=== PATIENT | female | born 1990 | race Caucasian/White ===

== ENCOUNTER 2017-04-23 14:52 | Emergency (ER) | payer BC ==
[2017-04-23 15:13] VITALS: RESP 16
[2017-04-23 16:25] LABS: RBC URINE < 1 /hpf (0-3); TRANSITIONAL EPITHIAL < 1 /hpf (0-3); URINE BACTERIA RARE (<OCC); URINE BILIRUBIN NEGATIVE (NEGATIVE); URINE BLOOD NEGATIVE (NEGATIVE); URINE COLOR Yellow (YELLOW); URINE GLUCOSE (UA) NORMAL (Normal); URINE KETONE TRACE mg/dL (NEGATIVE); URINE LEUKOCYTE ESTERASE NEG Leu/uL (Negative); URINE PROTEIN NEGATIVE (NEGATIVE); URINE UROBILINOGEN NORMAL mg/dL (0.2-1.0); WBC URINE 1 /hpf (0-5)
[2017-04-23 16:31] LABS: BASO # 0.1 K/uL (0.0-0.2); BASO % 0.6 % (0.0-2.0); EOS # 0.2 K/uL (0.0-0.7); EOS % 1.7 % (0.0-4.0); HEMATOCRIT 33.7 % (34.0-47.0); LYMPH # 2.4 K/uL (1.0-4.3); LYMPH % 23.4 % (20.0-40.0); MEAN CELL VOLUME 82.8 fL (81.0-99.0); MEAN CORPUSCULAR HEMOGLOBIN 27.8 pg (27.0-31.0); MEAN CORPUSCULAR HGB CONC 33.5 g/dL (33.0-37.0); MEAN PLATELET VOLUME 8.3 fL (7.2-11.7); MONO # 0.7 K/uL (0.0-0.8); MONO % 6.5 % (0.0-10.0); RED CELL DISTRIBUTION WIDTH 14.5 % (11.5-14.5); WHITE BLOOD COUNT 10.3 K/uL (4.8-10.8)
[2017-04-23] MEDS ORDERED: Sodium Chloride 0.9% 1,000 ML IV ONE (16:36)
[2017-04-23 16:39] LABS: CHLORIDE 100 mmol/L (98-107)
[2017-04-23 16:40] LABS: POTASSIUM 4.1 mmol/L (3.6-5.2); SODIUM 134 mmol/L (132-148)
[2017-04-23 16:42] LABS: CARBON DIOXIDE 21 mmol/L (22-30); GFR AFRICAN-AMERICAN > 60
[2017-04-23 16:43] LABS: ALB/GLOB RATIO 1.1 (1.0-2.1); ALKALINE PHOSPHATASE 68 U/L (38-126); ALT/SGPT 28 U/L (9-52); AST/SGOT 16 U/L (14-36); BILIRUBIN,TOTAL 0.7 mg/dL (0.2-1.3); BLOOD UREA NITROGEN 10 mg/dL (7-17); CALCIUM 9.2 mg/dl (8.6-10.4); GLUCOSE,RANDOM 79 mg/dL (65-105); TOTAL PROTEIN 7.4 g/dL (6.3-8.3)
[2017-04-23] MEDS ORDERED: Morphine 4 MG/ML VIAL ONE (17:35)
[2017-04-23] MEDS ORDERED: Sodium Chloride 0.9% 1,000 ML ONE (17:35)
--- NOTE | 2017-04-23 17:35 | C.PDOC ---
History Of Present Illness 27 year old female presents to the ED with complaints of intermittent pelvic pain since yesterday with one episode of vaginal bleeding and nausea. Patient is , currently approximately 12 weeks . She denies vaginal bleeding today, vomiting, diarrhea, dysuria, vaginal discharge. Time Seen by Provider: 04/23/17 15:45 Chief Complaint (Nursing): Abdominal Pain History Per: Patient History/Exam Limitations: no limitations Onset/Duration Of Symptoms: Days (1 day ), Intermittent Episodes Current Symptoms Are (Timing): Still Present Severity: Moderate Radiation Of Pain To:: None Quality Of Discomfort: "Pain" Associated Symptoms: Nausea. denies: Fever, Chills, Vomiting, Diarrhea, Urinary Symptoms Abnormal Vaginal Bleeding: Yes : 7 Para: 2 Miscarriage: 4 (as per patient ) Past Medical History Reviewed: Historical Data, Nursing Documentation, Vital Signs Vital Signs: Last Vital Signs Temp 97.7 F 04/23/17 15:09 Pulse 98 H 04/23/17 15:09 Resp 16 04/23/17 15:09 BP 95/69 L 04/23/17 15:09 Pulse Ox 100 04/23/17 18:53 - Medical History PMH: No Chronic Diseases Surgical History: Cholecystectomy Family History: States: No Known Family Hx - Social History Hx Alcohol Use: No Hx Substance Use: No - Immunization History Hx Tetanus Toxoid Vaccination: No Hx Influenza Vaccination: No Hx Pneumococcal Vaccination: No Review Of Systems Except As Marked, All Systems Reviewed And Found Negative. Constitutional: Negative for: Fever, Chills Cardiovascular: Negative for: Chest Pain, Palpitations Respiratory: Negative for: Cough, Shortness of Breath Gastrointestinal: Positive for: Nausea. Negative for: Vomiting, Abdominal Pain , Diarrhea Genitourinary: Positive for: Vaginal Bleeding (yesterday, no vaginal bleeding today ), Pelvic Pain. Negative for: Dysuria, Hematuria, Vaginal Discharge Physical Exam - Physical Exam Appears: Well, Non-toxic, In Acute Distress ( in mild to moderate pain.) Skin: Warm, Dry Head: Normacephalic Eye(s): bilateral: Normal Inspection Oral Mucosa: Moist Neck: Supple Cardiovascular: Rhythm Regular Respiratory: Normal Breath Sounds, No Rales, No Rhonchi, No Wheezing Gastrointestinal/Abdominal: Bowel Sounds, Soft, Tenderness (Suprapubic tenderness to palpation), No Distention, No Guarding, No Rebound, Other (gravid abdomen ) Neurological/Psych: Oriented x3 ED Course And Treatment - Laboratory Results Result Diagrams: 04/23/17 16:24 04/23/17 16:24 O2 Sat by Pulse Oximetry: 100 (room air ) Pulse Ox Interpretation: Normal - CT Scan/US Transvaginal US Other Rad Studies (CT/US): Read By Radiologist, Radiology Report Reviewed CT/US Interpretation: FINDINGS: UTERUS: Gestational sac: Single intrauterine gestation. Heart rate: 154 bpm. age (Ultrasound estimated): 13 weeks 4 days +/-1 week 0 day. Charito-gestational hemorrhage: None. Date of delivery (Ultrasound estimated) : 10/25/2017. Uterus measures 18.3 x 7.7 x 11.8 cm. Normal in size and appearance. CERVIX: Long and closed. No cervical abnormality seen. RIGHT OVARY: Measures 3.4 x 2.9 x 2.6 cm. No mass lesion. Normal flow. LEFT OVARY: Measures 3.4 x 2.8 x 3.4 cm. No solid mass. Normal flow. FREE FLUID: None. OTHER FINDINGS: None. IMPRESSION: Single intrauterine live with ultrasound estimated gestational age of 13 weeks 4 days +/- 1 week 0 day. Estimated date of delivery by ultrasound is 10/25. Progress Note: Blood work, UA, and transvaginal US ordered and reviewed. Patient was given IV NS bolus, IV morphine and IV zofran. Reevaluation Time: 19:00 Reassessment Condition: Improved (Patient reassessed, currently resting comfortably. On exam, abdomen is soft and nontender. US of abdomen pending.) Disposition - Disposition Disposition Time: 19:10 Condition: STABLE Forms: Heekya (Greek) - Clinical Impression Clinical Impression: , Pelvic pain affecting - Scribe Statement The provider has reviewed the documentation as recorded by the Scribe Kaeal Doshi All medical record entries made by the Scribe were at my direction and personally dictated by me. I have reviewed the chart and agree that the record accurately reflects my personal performance of the history, physical exam, medical decision making, and the department course for this patient. I have also personally directed, reviewed, and agree with the discharge instructions and disposition. Physician Patient Turnover Patient Signed Over To: Douglas Crespo Handoff Comments: pending abdominal US, reassessment
--- NOTE | 2017-04-23 18:53 | US ---
PROCEDURE: OB Pelvic Ultrasound HISTORY: PELVIC PAIN, VAG BLEEDING, PREGNANCT COMPARISON: None available. FINDINGS: UTERUS: Gestational sac: Single intrauterine gestation. Heart rate: 154 bpm. age (Ultrasound estimated): 13 weeks 4 days +/-1 week 0 day. Charito-gestational hemorrhage: None. Date of delivery (Ultrasound estimated) : 10/25/2017 Uterus measures 18.3 x 7.7 x 11.8 cm. Normal in size and appearance. CERVIX: Long and closed. No cervical abnormality seen. RIGHT OVARY: Measures 3.4 x 2.9 x 2.6 cm. No mass lesion. Normal flow. LEFT OVARY: Measures 3.4 x 2.8 x 3.4 cm. No solid mass. Normal flow. FREE FLUID: None. OTHER FINDINGS: None. IMPRESSION: Single intrauterine live with ultrasound estimated gestational age of 13 weeks 4 days +/- 1 week 0 day. Estimated date of delivery by ultrasound is 10/25/2017.
[2017-04-23 20:23] VITALS: BP 100/62; PULSE 89; TEMP 98; O2SAT 99
--- NOTE | 2017-04-24 10:02 | US ---
PROCEDURE: Right lower quadrant limited ultrasound HISTORY: rlq/suprapubic pain, evaluate appendix please COMPARISON: No prior similar study available for comparison TECHNIQUE: Limited right lower quadrant abdominal ultrasound was performed. FINDINGS: The appendix is not identified in this exam. There is no evidence of free fluid or fluid collection at the right lower quadrant. There is no evidence of right hydronephrosis. IMPRESSION: The appendix is not identified in this exam. If clinically warranted further assessment by other modalities such as CT may be obtained.
== END 2017-04-23 20:10 | disposition home or self-care (01) ==
LOC: C.ER 14:52
DX: O26.891 Other specified pregnancy related conditions, first trimester (principal); Z3A.12 12 weeks gestation of pregnancy; R10.2 Pelvic and perineal pain
CPT/HCPCS: 76705; 76815; 80053; 81001; 84702; 84703; 85025; 86850; 86900; 96361; 96374; 96375; 99284; J2270; J2405; J7040